=== PATIENT | male | born 1995 | race African-American/Black ===

== ENCOUNTER 2017-07-17 21:55 | Emergency (ER) | payer OTHER ==
[~2017-07-17] VITALS: Ht 188 cm; Wt 150.0 kg
[2017-07-17 22:33] VITALS: BP 144/75; PULSE 74; RESP 20; TEMP 98.8; O2SAT 99
[2017-07-17] MEDS ORDERED: SODIUM CHLORIDE 0.9% FLUSH 10 ML FLUSH IVF PRN (23:30)
[2017-07-17] MEDS ORDERED: KETOROLAC TROMETHAMINE 30 MG/ML (IVP) VIAL IV PUSH ONE (23:30)
--- NOTE | 2017-07-17 23:40 | RADRPT ---
EXAM DATE/TIME: 07/17/2017 23:28 [place] COMPARISON: No previous studies available for comparison. INDICATIONS : Cough and chest pain. MEDICAL HISTORY : None. SURGICAL HISTORY : None. ENCOUNTER: Initial ACUITY: 1 day PAIN SCORE: 6/10 LOCATION: Bilateral chest inferior FINDINGS: PA and lateral views of the chest demonstrate the lungs to be symmetrically aerated without evidence of mass, infiltrate or effusion. The cardiomediastinal contours are unremarkable. Osseous structure s are intact. CONCLUSION: No acute cardiopulmonary disease. Emiliano Jeffries MD on July 17, 2017 at 23:39 Board Certified Radiologist. This report was verified electronically.
[2017-07-18 00:36] LABS: AUTOMATED NEUTROPHIL # 3.9 TH/MM3 (1.8-7.7); BASOPHIL % 0.5 % (0.0-2.0); EOSINOPHIL # 0.1 TH/MM3 (0-0.4); EOSINOPHIL % 1.3 % (0.0-4.0); HEMATOCRIT 41.9 % (39.0-51.0); LYMPH % 39.2 % (9.0-44.0); MEAN CELL VOLUME 83.9 FL (80.0-100.0); MEAN CORPUSCULAR HGB CONC 35.8 % (32.0-36.0); MEAN PLATELET VOLUME 7.6 FL (7.0-11.0); MONO % 7.6 % (0.0-8.0); MONOCYTE # 0.6 TH/MM3 (0-0.9); NEUT % 51.4 % (16.0-70.0); PLATELET COUNT 310 TH/MM3 (150-450); RED CELL DISTRIBUTION WIDTH 13.8 % (11.6-17.2); WHITE BLOOD COUNT 7.7 TH/MM3 (4.0-11.0)
[2017-07-18 00:48] LABS: ALBUMIN 4.2 GM/DL (3.4-5.0); ALT (GPT) 32 U/L (12-78); AST (GOT) 25 U/L (15-37); BICARBONATE 28.1 MEQ/L (21.0-32.0); BLOOD UREA NITROGEN 12 MG/DL (7-18); CALCIUM 8.9 MG/DL (8.5-10.1); CHLORIDE 107 MEQ/L (98-107); CREATININE 1.06 MG/DL (0.60-1.30); GLOMERULAR FILTRATION RATE 107 ML/MIN (>89); GLUCOSE,RANDOM 93 MG/DL (74-106); SODIUM (NA) 140 MEQ/L (136-145)
[2017-07-18 00:52] LABS: ALKALINE PHOSPHATASE 75 U/L (45-117); TOTAL BILIRUBIN ADULT 0.5 MG/DL (0.2-1.0); TOTAL PROTEIN 7.4 GM/DL (6.4-8.2); TROPONIN I LESS THAN 0.02 NG/ML (0.02-0.05)
--- NOTE | 2017-07-18 00:53 | PD ---
HPI Chief Complaint: Pain: Acute or Chronic Time Seen by Provider: 23:07 Travel History International Travel<30 days: No Contact w/Intl Traveler<30days: No Traveled to known affect area: No History of Present Illness HPI Patient is a 22 year old male who comes in complaining of pain to the lateral parts of his chest. He says it started last night and got worse this morning. He says he had some coughing last night, but none today. He denies any shortness of breath. He denies nausea or vomiting. He says he had some lower back pain yesterday, but says that is gone. He has not taken anything for his pain. He denies any injuries. Severity is mild to moderate. [facility] Social History Alcohol Use: No Tobacco Use: No Substance Use: No Allergies-Medications (Allergen,Severity, Reaction): Coded Allergies: No Known Allergies (Verified Adverse Reaction, Unknown, 07/17/17) Reported Meds & Prescriptions Reported Meds & Active Scripts Active No Active Prescriptions or Reported Medications Review of Systems Except as stated in HPI: all other systems reviewed are Neg General / Constitutional: No: Fever, Chills HENT: No: Headaches, Lightheadedness Cardiovascular: Positive: Chest Pain or Discomfort Respiratory: Positive: Cough, No: Shortness of Breath Gastrointestinal: No: Nausea, Vomiting Musculoskeletal: Positive: Pain Skin: No Rash, No Change in Pigmentation Neurologic: No: Weakness, Dizziness Physical Exam Narrative GENERAL: Awake and alert, in no acute distress. SKIN: Focused skin assessment warm/dry. HEAD: Atraumatic. Normocephalic. EYES: Pupils equal and round. No scleral icterus. ENT: Mucous membranes pink and moist. NECK: Trachea midline. No JVD. CARDIOVASCULAR: Regular rate and rhythm. No murmur appreciated. Tender to palpation of the lateral chest [place]. RESPIRATORY: No accessory muscle use. Clear to auscultation. Breath sounds equal bilaterally. GASTROINTESTINAL: Abdomen soft, non-tender, nondistended. MUSCULOSKELETAL: No obvious deformities. No clubbing. No cyanosis. No edema. NEUROLOGICAL: Awake and alert. No obvious cranial nerve deficits. Motor grossly within normal limits. Normal speech. PSYCHIATRIC: Appropriate mood and affect; insight and judgment normal. Data Data Last Documented VS Vital Signs Date Time Temp Pulse Resp B/P (MAP) Pulse Ox O2 Delivery O2 Flow Rate FiO2 07/17/17 22:33 98.8 74 20 144/75 (98) 99 Room Air Orders Orders Electrocardiogram (07/17/17 23:17) Complete Blood Count With Diff (07/17/17 23:17) Comprehensive Metabolic Panel (07/17/17 23:17) Troponin I (07/17/17 23:17) Ecg Monitoring (07/17/17 23:17) Iv Access Insert/Monitor (07/17/17 23:17) Oximetry (07/17/17 23:17) Sodium Chloride 0.9% Flush (Ns Flush) (07/17/17 23:30) Chest, Pa & Lat (07/17/17 23:17) Ketorolac Inj (Toradol Inj) (07/17/17 23:30) Labs Laboratory Tests Test 07/17/17 23:59 White Blood Count 7.7 TH/MM3 Red Blood Count 5.00 MIL/MM3 Hemoglobin 15.0 GM/DL Hematocrit 41.9 % Mean Corpuscular Volume 83.9 FL Mean Corpuscular Hemoglobin 30.0 PG Mean Corpuscular Hemoglobin Concent 35.8 % Red Cell Distribution Width 13.8 % Platelet Count 310 TH/MM3 Mean Platelet Volume 7.6 FL Neutrophils (%) (Auto) 51.4 % Lymphocytes (%) (Auto) 39.2 % Monocytes (%) (Auto) 7.6 % Eosinophils (%) (Auto) 1.3 % Basophils (%) (Auto) 0.5 % Neutrophils # (Auto) 3.9 TH/MM3 Lymphocytes # (Auto) 3.0 TH/MM3 Monocytes # (Auto) 0.6 TH/MM3 Eosinophils # (Auto) 0.1 TH/MM3 Basophils # (Auto) 0.0 TH/MM3 CBC Comment DIFF FINAL Differential Comment MDM Medical Decision Making Medical Screen Exam Complete: Yes Emergency Medical Condition: Yes Interpretation(s) ECG shows sinus bradycardia at 53, no ST elevation or depression. Differential Diagnosis costochondritis vs pneumonia vs muscle strain Narrative Course Patient is a 22 year old male who comes in complaining of lateral chest wall pain. Exam shows tenderness on palpation. IV established, labs sent. Labs show no acute abnormalities. Patient given Toradol for pain. CXR performed shows no acute abnormalities. Last 24 hours Impressions Chest X-Ray 07/17/17 [id number] Signed Impressions: Service Date/Time: Monday, July 17, 2017 23:28 - CONCLUSION: No acute cardiopulmonary disease. Emiliano Jeffries MD Patient advised to take Tylenol or Ibuprofen as needed for pain. Advised to return to the ED as needed for any worsening symptoms. Diagnosis Primary Impression: Chest wall pain Patient Instructions: Chest Wall Pain (ED), General Instructions Additional Instructions: Follow up with a primary care doctor. Take Tylenol or Ibuprofen as needed for pain. Return to the ED as needed for any worsening symptoms. Scripts No Active Prescriptions or Reported Meds Disposition: 01 DISCHARGE HOME Condition: Stable Ashley Cazares MD Jul 18, 2017 00:53
--- NOTE | 2017-07-18 09:07 | EKG ---
Date Performed: 07/18/2017 Time Performed: 00:08:13 PTAGE: 22 years EKG: SINUS BRADYCARDIA WITH SINUS ARRHYTHMIA BORDERLINE ECG NO PREVIOUS TRACING DOCTOR: Kenneth Benitez Interpretating Date/Time 07/18/2017 09:04:40
== END 2017-07-18 01:30 | disposition home or self-care (01) ==
LOC: NEPD 21:55
DX: R07.89 Other chest pain (principal); R00.1 Bradycardia, unspecified; R05 Cough; I49.9 Cardiac arrhythmia, unspecified
CPT/HCPCS: 71046; 80053; 84484; 85025; 93005; 96374; 99285; J1885